=== PATIENT | female | born 2000 | race Caucasian/White ===

== ENCOUNTER 2019-12-09 20:13 | Emergency (ER) | payer MEDICARE, OTHER ==
[~2019-12-09] VITALS: Ht 154.9 cm; Wt 95.7 kg
[~2019-12-09 20:13] MED LIST: ALESSE PO; AMOXICILLIN250 M1 PO; AUGMENTIN ES-6100 ML PO; BENADRYL12.5 MG/5 PO; CLARITIN5 MG/5 ML PO; HYDROCODONE BIT1 T11 PO; KEFLEX500 MG PO; LEVORA-28 30 MC1 TA1 PO; MIRALAX17 GM/DOSE PO; NKHM; PRILOSEC20 M1 PO; ZOFRAN ODT4 MG SL; ZYRTEC10 MG PO; [UNRECOGNIZED DRUG - OTHER] TP
[2019-12-09 21:32] LABS: BILIRUBIN NEGATIVE (NEGATIVE); BLOOD 1+ (NEGATIVE); CLARITY CLEAR (CLEAR); COLOR YELLOW (YELLOW); GLUCOSE NEGATIVE (NEGATIVE); KETONE NEGATIVE (NEGATIVE); NITRITE NEGATIVE (NEGATIVE); PH 6.5 (5.0-9.0); UROBILINOGEN 0.2 E.U./dl (0.2-1.0)
[2019-12-09 21:33] LABS: LEUKO ESTERASE TRACE (NEGATIVE)
[2019-12-09 21:38] LABS: BACTERIA 3+; YEAST TRACE
[2019-12-10 00:27] VITALS: BP 131/76
[2019-12-10] MEDS ORDERED: OMNICEF300 MG PO (01:56)
== END 2019-12-10 02:13 | disposition home or self-care (01) ==
LOC: ED 20:13
PROVIDERS: Physician Assistant
DX: J18.9 Pneumonia, unspecified organism (principal); M54.5 Low back pain; R30.9 Painful micturition, unspecified; Z79.899 Other long term (current) drug therapy

== ENCOUNTER → 2020-09-13 | Outpatient (CLI) | payer MEDICARE, MEDICAID ==
[~2020-09-13] MED LIST changes: +OMNICEF300 MG PO
[2020-09-13 10:09] LABS: BASO # 0.1 10*3/uL (0.0-0.1); BASO % 1.3 % (0.0-1.0); EOS % 0.3 % (1.0-4.0); HEMATOCRIT 45.4 % (37.0-47.0); LYMPH % 22.2 % (27.0-41.0); MEAN CELL VOLUME 95.4 fl (81.0-99.0); MEAN CORPUSCULAR HGB 31.1 pg (27.0-31.0); MEAN CORPUSCULAR HGB CONC 32.6 g/dl (33.0-37.0); MEAN PLATELET VOLUME 9.2 fl (9.6-12.3); MONO # 0.6 10*3/uL (0.1-1.0); MONO % 6.5 % (3.0-9.0); NEUT # 6.1 10*3/uL (2.3-7.9); NEUT % 69.4 % (47.0-73.0); PLATELET COUNT AUTOMATED 312 10*3/uL (130-400); RED BLOOD COUNT 4.76 10*6/uL (4.10-5.10); RED CELL DISTRI WIDTH 13.9 % (0-14.5); WHITE BLOOD COUNT 8.8 10*3/uL (4.8-10.8)
[2020-09-13 10:23] LABS: ALBUMIN 3.5 gm/dl (3.1-4.5); ALKALINE PHOSPHATASE 70 U/L (45-117); BUN 11 mg/dl (7-24); CHLORIDE 103 mmol/L (98-107); CHOLESTEROL 186 mg/dL (<200); CREATININE 0.99 mg/dL (0.55-1.02); HDL CHOLESTEROL 40 mg/dl (40-60); LDL CHOLESTEROL 129 mg/dL (9-159); POTASSIUM 3.9 mmol/L (3.5-5.1); SGOT/AST 13 IU/L (3-35); SGPT/ALT 33 U/L (12-78); SODIUM 137 mmol/L (136-145); TRIGLYCERIDES 83 mg/dl (<150); VLDL CHOLESTEROL 17 mg/dL (6-40)
== END | disposition home or self-care (01) ==
LOC: LAB 09:35
PROVIDERS: ATTEND Internal Medicine
DX: R53.82 Chronic fatigue, unspecified (principal); E78.5 Hyperlipidemia, unspecified; R63.5 Abnormal weight gain; Z00.01 Encounter for general adult medical examination with abnormal findings

== ENCOUNTER → 2021-09-01 | Outpatient (CLI) | payer MEDICARE, MEDICAID ==
[2021-09-01 08:42] LABS: BASO # 0.1 10*3/uL (0.0-0.1); BASO % 1.4 % (0.0-1.0); EOS # 0.1 10*3/uL (0.0-0.4); EOS % 0.8 % (1.0-4.0); HEMATOCRIT 45.9 % (37.0-47.0); LYMPH # 1.9 10*3/uL (1.3-4.4); LYMPH % 21.6 % (27.0-41.0); MEAN CORPUSCULAR HGB 31.6 pg (27.0-31.0); MEAN CORPUSCULAR HGB CONC 32.9 g/dl (33.0-37.0); MEAN PLATELET VOLUME 9.4 fl (9.6-12.3); MONO # 0.6 10*3/uL (0.1-1.0); MONO % 6.8 % (3.0-9.0); NEUT # 6.1 10*3/uL (2.3-7.9); NEUT % 69.2 % (47.0-73.0); PLATELET COUNT AUTOMATED 310 10*3/uL (130-400); RED BLOOD COUNT 4.78 10*6/uL (4.10-5.10); RED CELL DISTRI WIDTH 13.8 % (0-14.5); WHITE BLOOD COUNT 8.8 10*3/uL (4.8-10.8)
[2021-09-01 09:00] LABS: BUN 17 mg/dl (7-24); CHLORIDE 107 mmol/L (98-107); CHOLESTEROL 142 mg/dL (<200); CREATININE 1.02 mg/dL (0.55-1.02); IRON 110 ug/dL (50-170); POTASSIUM 4.3 mmol/L (3.5-5.1); SGOT/AST 12 IU/L (3-35); SGPT/ALT 36 U/L (12-78); SODIUM 140 mmol/L (136-145); TOTAL IRON BINDING CAPACITY 331 ug/dl (250-450); TRIGLYCERIDES 42 mg/dl (<150)
[2021-09-01 09:08] LABS: ALKALINE PHOSPHATASE 84 U/L (45-117); LDL CHOLESTEROL 95 mg/dL (9-159)
[2021-09-01 10:03] LABS: FERRITIN 62.5 ng/mL (10.0-291.0); VITAMIN D, 25-HYDROXY 49.8 ng/mL (30-100)
== END | disposition home or self-care (01) ==
LOC: LAB 08:16
PROVIDERS: ATTEND Nurse Practitioner Primary Care
DX: Q90.9 Down syndrome, unspecified (principal); E55.9 Vitamin D deficiency, unspecified; D50.9 Iron deficiency anemia, unspecified; Z79.899 Other long term (current) drug therapy

== ENCOUNTER → 2022-07-23 | Outpatient (CLI) | payer MEDICARE, MEDICAID ==
[~2022-07-23] MED LIST changes: +AMOXICILLIN500 M3 PO; +DICYCLOMINE HYD20 MG PO; +LEVOFLOXACIN750 M2 PO; +OMEGA-31000 M1 PO; +PULMICORT RESP0.5 M1 INH; +VISBIOME 112.51 EACH PO; +VITAMIN C250 M2 PO; +VITAMIN D3125 MC1 PO; +VITAMIN D350 MC2 PO; +ZITHROMAX TRI-500 M1 PO
== END | disposition home or self-care (01) ==
LOC: LAB 08:04
PROVIDERS: ATTEND Nurse Practitioner Primary Care
DX: N39.0 Urinary tract infection, site not specified (principal); R31.9 Hematuria, unspecified

== ENCOUNTER → 2022-08-12 | Outpatient (CLI) | payer MEDICARE, MEDICAID | END | disposition home or self-care (01) | LOC: RAD 12:57 | PROVIDERS: ATTEND Nurse Practitioner Primary Care | DX: J69.0 Pneumonitis due to inhalation of food and vomit (principal) ==

== ENCOUNTER → 2023-02-01 | Outpatient (CLI) | payer MEDICARE, MEDICAID ==
[2023-02-01 10:38] LABS: BASO # 0.1 10*3/uL (0.0-0.1); BASO % 1.2 % (0.0-1.0); EOS % 0.3 % (1.0-4.0); HEMATOCRIT 46.5 % (37.0-47.0); LYMPH # 1.6 10*3/uL (1.3-4.4); LYMPH % 20.5 % (27.0-41.0); MEAN CELL VOLUME 96.1 fl (81.0-99.0); MEAN CORPUSCULAR HGB 32.2 pg (27.0-31.0); MEAN CORPUSCULAR HGB CONC 33.5 g/dl (33.0-37.0); MEAN PLATELET VOLUME 9.2 fl (9.6-12.3); MONO # 0.5 10*3/uL (0.1-1.0); MONO % 6.5 % (3.0-9.0); NEUT # 5.4 10*3/uL (2.3-7.9); NEUT % 71.2 % (47.0-73.0); PLATELET COUNT AUTOMATED 320 10*3/uL (130-400); RED BLOOD COUNT 4.84 10*6/uL (4.10-5.10); RED CELL DISTRI WIDTH 13.6 % (0-14.5); WHITE BLOOD COUNT 7.6 10*3/uL (4.8-10.8)
[2023-02-01 11:02] LABS: ALKALINE PHOSPHATASE 69 U/L (46-116); BUN 11 mg/dl (9-23); CHLORIDE 108 mmol/L (98-107); CHOLESTEROL 170 mg/dL (<200); LDL CHOLESTEROL 113 mg/dL (9-159); POTASSIUM 4.1 mmol/L (3.4-5.1); SGPT/ALT 29 U/L (10-49); TOTAL PROTEIN 6.9 gm/dL (6.0-8.0); TRIGLYCERIDES 87 mg/dl (<150)
[2023-02-01 11:16] LABS: VITAMIN D, 25-HYDROXY 72.4 ng/mL (30-100)
== END | disposition home or self-care (01) ==
LOC: LAB 09:51
PROVIDERS: ATTEND Nurse Practitioner Primary Care
DX: R01.1 Cardiac murmur, unspecified (principal); Q90.9 Down syndrome, unspecified; K58.9 Irritable bowel syndrome, unspecified; R10.9 Unspecified abdominal pain; E55.9 Vitamin D deficiency, unspecified; Z79.899 Other long term (current) drug therapy

== ENCOUNTER → 2024-04-16 | Outpatient (CLI) | payer OTHER, MEDICAID ==
[2024-04-16 15:27] LABS: BASO # 0.1 10*3/uL (0.0-0.1); BASO % 0.6 % (0.0-1.0); EOS % 0.2 % (1.0-4.0); HEMATOCRIT 44.8 % (37.0-47.0); MEAN PLATELET VOLUME 9.4 fl (9.6-12.3); MONO # 0.7 10*3/uL (0.1-1.0); MONO % 7.2 % (3.0-9.0); NEUT # 5.6 10*3/uL (2.3-7.9); NEUT % 60.7 % (47.0-73.0); PLATELET COUNT AUTOMATED 338 10*3/uL (130-400); RED BLOOD COUNT 4.62 10*6/uL (4.10-5.10); RED CELL DISTRI WIDTH 13.9 % (0-14.5); WHITE BLOOD COUNT 9.3 10*3/uL (4.8-10.8)
[2024-04-16 15:47] LABS: POTASSIUM 4.4 mmol/L (3.4-5.1)
== END | disposition home or self-care (01) ==
LOC: LAB 15:06
PROVIDERS: ATTEND Nurse Practitioner Primary Care
DX: J02.9 Acute pharyngitis, unspecified (principal); N28.9 Disorder of kidney and ureter, unspecified

== ENCOUNTER → 2024-04-24 | Outpatient (CLI) | payer OTHER, MEDICAID ==
[2024-04-24 09:50] LABS: ALKALINE PHOSPHATASE 55 U/L (46-116); BUN 11 mg/dl (9-23); CHLORIDE 103 mmol/L (98-107); POTASSIUM 4.3 mmol/L (3.4-5.1); SGPT/ALT 46 U/L (5-49); TOTAL PROTEIN 6.7 gm/dL (6.0-8.0)
== END | disposition home or self-care (01) ==
LOC: LAB 00:35
PROVIDERS: ATTEND Nurse Practitioner Primary Care
DX: N28.9 Disorder of kidney and ureter, unspecified (principal); R74.8 Abnormal levels of other serum enzymes; Z79.899 Other long term (current) drug therapy

== ENCOUNTER → 2024-07-19 | Outpatient (CLI) | payer OTHER, MEDICAID ==
[2024-07-19 14:23] LABS: BASO # 0.1 10*3/uL (0.0-0.1); BASO % 0.3 % (0.0-1.0); HEMATOCRIT 48.5 % (37.0-47.0); MEAN CELL VOLUME 94.7 fl (81.0-99.0); MEAN CORPUSCULAR HGB CONC 33.8 g/dl (33.0-37.0); MEAN PLATELET VOLUME 8.9 fl (9.6-12.3); MONO # 0.8 10*3/uL (0.1-1.0); MONO % 4.3 % (3.0-9.0); NEUT # 14.7 10*3/uL (2.3-7.9); NEUT % 82.6 % (47.0-73.0); PLATELET COUNT AUTOMATED 381 10*3/uL (130-400); RED BLOOD COUNT 5.12 10*6/uL (4.10-5.10); RED CELL DISTRI WIDTH 13.9 % (0-14.5); WHITE BLOOD COUNT 17.8 10*3/uL (4.8-10.8)
[2024-07-19 14:58] LABS: ALKALINE PHOSPHATASE 64 U/L (46-116); BUN 14 mg/dl (9-23); CHLORIDE 106 mmol/L (98-107); POTASSIUM 3.8 mmol/L (3.4-5.1); SGPT/ALT 115 U/L (5-49)
== END | disposition home or self-care (01) ==
LOC: LAB 13:58
PROVIDERS: ATTEND Nurse Practitioner Primary Care
DX: R55 Syncope and collapse (principal); Z79.899 Other long term (current) drug therapy